=== PATIENT | male | born 1990 | race Caucasian/White ===

== ENCOUNTER 2018-01-10 03:23 | Inpatient (IN) | payer MEDICAID ==
[2018-01-10] MEDS ORDERED: ceFAZolin 2 GM/DEXTROSE 100 ML IV ONE (03:57)
--- NOTE | 2018-01-10 04:06 | EDPHY ---
H & P Stated Complaint: Nose swelling, poss infection from acne? Time Seen by Provider: 01/10/18 03:57 HPI/ROS: HPI CHIEF COMPLAINT: Picking at face, facial infection HISTORY OF PRESENT ILLNESS: Patient 27-year-old male, is otherwise healthy, denies having any significant medical history does suffer from acne, patient reports he has been extremely stressed recently is been picking at his acne on his face. Patient states that he has been picking at the lesions around his nose. He has nose for 3 days at worsen swelling and pain. Swelling rather got worse this evening. This prompted him to come the emergency room. Denies any fever. Denies headache or neck pain or stiff neck. Denies headache or severe facial pain. Past Medical History: No medical history Past Surgical History: No recent surgery Social History: Denies daily use of alcohol. Occasional marijuana use. Denies tobacco. Family History: Noncontributory ROS REVIEW OF SYSTEMS: A comprehensive 10 point review of systems is otherwise negative aside from elements mentioned in the history of present illness. Exam Constitutional triage nursing summary reviewed, vital signs reviewed, awake/ alert. Eyes normal conjunctivae and sclera, EOMI, PERRLA. HENT face: Significant swelling and cellulitis noted over the nasal bridge,, mild swelling noted to the mid forehead, additionally some swelling periorbital bilaterally with dependent edema, no significant abscess on exam. Extensive acne on face with excoriations from picking. normal inspection, atraumatic, moist mucus membranes, no epistaxis, neck supple/ no meningismus, no raccoon eyes. Respiratory clear to auscultation bilaterally, normal breath sounds, no respiratory distress, no wheezing. Cardiovascular rate normal, regular rhythm, no murmur, no edema, distal pulses normal. Gastrointestinal soft, non-tender, no rebound, no guarding, normal bowel sounds, no distension, no pulsatile mass. Genitourinary no CVA tenderness. Musculoskeletal no midline vertebral tenderness, full range of motion, no calf swelling, no tenderness of extremities, no meningismus, good pulses, neurovascularly intact. Skin pink, warm, & dry, no rash, skin atraumatic. Neurologic awake, alert and oriented x 3, AAOx3, moves all 4 extremities equally, motor intact, sensory intact, CN II-XII intact, normal cerebellar, normal vision, normal speech. Psychiatric normal mood/affect. Heme/Lymph/Immune no lymphadenopathy. Differential Diagnosis: Includes but is not limited to in a particular order facial cellulitis, facial abscess, MRSA infection, strep infection, concern for infection in the Danger zone of the face. Medical Decision Making: Plan for this patient IV establishment with basic blood work CBC and chemistry, IV Ancef [address] face with IV contrast rule out deep space infection. Re-evaluation: CT scan face with IV contrast shows inflammation around the nose and forehead with small abscesses. Concerning for cellulitis with small abscess. No osteomyelitis. No large abscess. This was called to me by Dr. Ruggiero. After review of this patient's CT scan, blood work I do recommend he gets admitted to the hospital today for IV antibiotics and close monitoring of this facial cellulitis. I have ordered 2 g of IV Ancef here. Additionally 1 L normal saline fluid. Check blood cultures and lactic. I have asked the hospitalist service Dr. Julio to admit the patient. Source: Patient - Personal History Current Tetanus Diphtheria and Acellular Pertussis (TDAP): Yes Tetanus Vaccine Date: < 10 years - Medical/Surgical History Hx Asthma: No Hx Chronic Respiratory Disease: No Hx Diabetes: No Hx Cardiac Disease: No Hx Renal Disease: No Hx Cirrhosis: No Hx Alcoholism: No Hx HIV/AIDS: No Hx Splenectomy or Spleen Trauma: No Other PMH: bronchitis - Social History Smoking Status: Light smoker Constitutional: Initial Vital Signs Temperature (C) 37.4 C 01/10/18 03:25 Heart Rate 115 H 01/10/18 03:25 Respiratory Rate 20 01/10/18 03:25 Blood Pressure 162/89 H 01/10/18 03:25 O2 Sat (%) 93 01/10/18 03:25 O2 Delivery Mode Room Air Allergies/Adverse Reactions: No Known Allergies Allergy (Verified 01/11/18 23:37) Home Medications: Medication Instructions Recorded Acetaminophen [Tylenol 325mg (*)] 650 mg PO Q4 PRN #0 tab 05/06/14 Ibuprofen [Motrin (*)] 400 mg PO Q4 PRN #0 tab 05/06/14 diphenhydrAMINE [Benadryl 25 MG 25 - 50 mg PO Q6 PRN #0 cap 05/06/14 (*)] QUEtiapine FUMARATE [Seroquel 50 50 mg PO HS PRN 01/10/18 mg (*)] Clindamycin HCl [Clindamycin] 300 mg PO TID #30 cap 01/12/18 Medical Decision Making - Data Points Laboratory Results: Laboratory Results 01/10/18 04:10 01/10/18 04:10 Medications Given: Discontinued Medications Hydrocodone Bitart/Acetaminophen ([place] 5/325) 1 - 2 tab PO Q4HRS PRN PRN Reason: Pain, Moderate Able to Take PO Stop: 01/20/18 06:47 Last Admin: 01/11/18 10:50 Dose: 2 tab Cefazolin Sodium/Dextrose (Ancef 2 Gm (Premix)) 100 mls @ 200 mls/hr IV EDNOW ONE PRN Reason: Protocol Stop: 01/10/18 04:26 Last Admin: 01/10/18 06:48 Dose: Not Given Cefazolin Sodium (Cefazolin Syringe) 2 gm in 20 mls @ 40 mls/hr IVP EDNOW ONE PRN Reason: Protocol Stop: 01/10/18 04:59 Last Admin: 01/10/18 04:26 Dose: 20 mls Sodium Chloride (Ns) 1,000 mls @ 0 mls/hr IV ONCE ONE PRN Reason: Wide Open Stop: 01/10/18 05:42 Last Admin: 01/10/18 05:56 Dose: 1,000 mls Sodium Chloride (Ns) 1,000 mls @ 125 mls/hr IV CONT NATHAN Stop: 07/09/18 06:59 Last Admin: 01/11/18 03:43 Dose: 1,000 mls Cefazolin Sodium (Cefazolin Syringe) 2 gm in 20 mls @ 40 mls/hr IVP Q8H NATHAN PRN Reason: Protocol Stop: 02/09/18 11:59 Last Admin: 01/11/18 11:30 Dose: 20 mls Ibuprofen (Motrin) 600 mg PO Q8HRS PRN PRN Reason: Pain, Mild/Fever, Can Take PO Stop: 07/09/18 06:47 Last Admin: 01/10/18 10:56 Dose: 600 mg Ketorolac Tromethamine (Toradol) 30 mg IVP Q6HRS PRN PRN Reason: Pain, Moderate Stop: 01/15/18 14:14 Last Admin: 01/10/18 18:48 Dose: 30 mg Nicotine (Nicoderm Cq) 21 mg TD DAILY NATHAN Stop: 07/09/18 08:59 Last Admin: 01/11/18 08:14 Dose: 21 mg Departure - Departure Disposition: [facility] Acute Clinical Impression: Facial cellulitis Condition: Serious
[2018-01-10 04:28] LABS: PLATELET COUNT 351 10^3/uL (150-400)
[2018-01-10] MEDS ORDERED: ceFAZolin 2 GM/SWFI 2 GM/20 ML SYR IVP ONE (04:30)
[2018-01-10] MEDS ORDERED: IOPAMIDOL (ISOVUE-300) 100 ML BTL ONE (04:40)
[2018-01-10] MEDS ORDERED: NS 1,000 ML IV ONE (05:41)
[2018-01-10] MEDS ORDERED: ACETAMINOPHEN 325 MG TAB PO PRN ×2 (06:48→10:02)
[2018-01-10] MEDS ORDERED: IBUPROFEN 200 MG TAB PO PRN ×2 (06:48→10:02)
[2018-01-10] MEDS ORDERED: NICOTINE POLACRILEX 2 MG GUM B PRN (06:48)
[2018-01-10] MEDS ORDERED: LORazepam 0.5 MG TAB PO PRN (06:48)
[2018-01-10] MEDS ORDERED: ONDANSETRON 4 MG/2 ML VIAL IVP PRN (06:48)
--- NOTE | 2018-01-10 08:16 | GHP ---
[f rep st] HISTORY AND PHYSICAL DATE OF ADMISSION: 01/10/2018 SOURCE: Patient provides history, appears reliable. EMR was reviewed and case discussed with ED pro vider. CHIEF COMPLAINT: Facial swelling. HISTORY OF PRESENT ILLNESS: This is a pleasant 27-year-old gentleman with past medical history signi ficant for acne and occasional insomnia, who presents to the emergency department today with complain ts of several days of increased facial pain and swelling. Patient with a history of acne. He had pi mples on the bridge of his nose, which he picked at and subsequently developed increasing cellulitis and swelling. The patient denies any recent fevers or chills. He denies any trouble swallowing. He denies any rhinorrhea, just significant nasal congestion and some difficulty opening his eyelids, bu t no acute changes in his vision. The patient denies any ocular pain. The patient reports some subm andibular lymphadenopathy. However, he denies any neck pain or stiffness. The patient denies any he adache. PAST MEDICAL HISTORY: Significant for acne, occasional insomnia. PAST SURGICAL HISTORY: Patient denies. FAMILY HISTORY: Mother with history of MS. SOCIAL HISTORY: Patient lives with his mother currently. He is employed. He does use occasional ma rijuana. He denies any current illicit drug use. He does have a remote history of IV drug use in [facility] for the last 2-3 months. He does smoke half-pack to 3/4 pack per day for several years. CODE STATUS: Full. PHYSICAL EXAMINATION: VITAL SIGNS: Upon arrival, blood pressure 162/89, heart rate 115, respiratory rate 20, O2 sats 93% on room air, temperature 37.4. Current vital signs: Blood pressure 128/81, he art rate is 86, respiratory rate 16, O2 saturation is 96% on room air with temperature 36.6. GENERAL : No acute distress, pleasant young adult gentleman is sitting up in bed. Does appear fatigued and acutely ill, but nontoxic. HEENT: Head: Patient with significant facial swelling and periorbital e kayla. No other rashes or sores. He does have multiple scabbed lesions on the bridge of his nose and closed comedones on his face. ENT: Mucous membranes appear moist. No oropharyngeal erythema or ex udates. NECK: Supple. Trachea is midline. Patient does have some tender submandibular lymphadenop athy bilaterally. No cervical or postauricular lymphadenopathy. CV: Regular rate and rhythm. No m urmurs, rubs, or gallops appreciated. RESPIRATORY: Lungs are clear to auscultation bilaterally. No wheezes, rales, or rhonchi. ABDOMEN: Positive bowel sounds. Soft, nontender to palpation. No jose ound, guarding or masses. : No suprapubic tenderness to palpation. No Dunn catheter in place. No CVA tenderness. EXTREMITIES: No cyanosis, clubbing, or edema. 2+ pedal pulses. NEURO: Patient with swollen eyelids, but overall no focal deficits. Cranial nerves appear intact. Some limited ran ge of motion due to edema. PSYCH: Patient's thought process content and questions are appropriate. He is cooperative and pleasant. LABORATORY STUDIES: WBC 15.7, H and H 14.3 and 43.6, MCV 90.1, platelet count is 351, neutrophil per cent 75.6. ESR is 27. Lactic acid 1.6. Sodium is 142, potassium 4.2, chloride 103, CO2 is 26, anio n gap 13, BUN is 15, creatinine 0.8, GFR greater than 60, glucose 105, calcium 9.3. CRP is 21.6. Pr ocalcitonin 0.06. CT face: Preliminary report reviewed. Final is pending. Image reviewed showing soft tissue swelling, probably early abscess anterior nose and frontal bone without any bony erosion evident. ASSESSMENT AND PLAN: A pleasant 27-year-old gentleman with history of facial acne, now with cellulit is, possible early abscess. 1. Facial cellulitis and edema, possible early abscess related to acne. The patient has been starte d on Ancef. He has no previous history of abscesses or known history of methicillin-resistant Staphy lococcus aureus. Will continue antibiotic therapy. May need to consider if no improvement, a consul tation with Ears, Nose and Throat. 2. Systemic inflammatory response syndrome criteria without severe sepsis. Lactate is normal. Anti biotics administered before any blood cultures received. Patient without any leukocytosis. He is af ebrile, and heart rate has improved. Will continue with IV fluids and monitor. 3. Pain likely related to patient's edema. Will have Toradol available and apply ice pack. 4. Fluid, electrolyte, nutrition. Intravenous fluids. The patient will have regular diet if tolera sherry. Denies any issues with swallowing at this time. Monitor electrolytes, replace if needed. 5. Prophylaxis. Sequential compression devices. Ia am holding anticoagulation pending reassessment . Low risk. Encourage ambulation. 6. Cor status: Full. 7. Disposition: Patient currently admitted to observation. If no significant improvement with curr ent antibiotic therapy, the patient may require additional hospital stay greater than 2 midnights. /[id number]/MODL
[2018-01-10] MEDS: NICOTINE 21 MG/24 HR PATCH TD SCH (08:36)
[2018-01-10] MEDS ORDERED: QUEtiapine FUMARATE 50 MG TAB PO PRN (10:02)
[2018-01-10] MEDS: NS 1,000 ML IV SCH ×2 (11:17→20:02)
[2018-01-10] MEDS: HYDROCODONE/APAP 5/325 TAB PO PRN ×3 (11:17→23:13)
[2018-01-10] MEDS: ceFAZolin 2 GM/SWFI 2 GM/20 ML SYR IVP SCH ×2 (11:28→20:01)
[2018-01-10] MEDS ORDERED: KETOROLAC 30 MG/1 ML SDV IVP PRN (14:15)
--- NOTE | 2018-01-10 14:16 | HOSPPROG ---
Hospitalist Progress Note Assessment/Plan: 27y male with facial pain. #Facial cellulitis -cont IV ancef -follow #Swelling -mild -cont supportive care -ct reviewed #Pain -ibuprofen #SIRS -resolved #Dispo likely 1-2 days consider ENT consult if not improving Subjective: very tired. pain. No other issues. Objective: Vital Signs Temp Pulse Resp BP Pulse Ox 36.3 C 84 16 113/81 H 97 01/10/18 11:10 01/10/18 11:10 01/10/18 11:10 01/10/18 11:10 01/10/18 11:10 01/09/18 01/10/18 01/11/18 05:59 05:59 05:59 Intake Total 100 Balance 100 - Physical Exam Constitutional: uncomfortable Eyes: PERRL Ears, Nose, Mouth, Throat: moist mucous membranes, hearing normal Cardiovascular: regular rate and rhythym, No JVD Respiratory: no respiratory distress, no rales or rhonchi Gastrointestinal: normoactive bowel sounds, No tenderness, No ascites Skin: warm, abrasion, erythema Musculoskeletal: normal joint ROM, no joint effusions, generalized weakness Neurologic: AAOx3 Psychiatric: interacting appropriately, not anxious, not encephalopathic ICD10 Worksheet Patient Problems: Problems Problem Status Onset SIRS (systemic inflammatory response syndrome) Acute Facial cellulitis Acute
[2018-01-11] MEDS: NS 1,000 ML IV SCH (03:43)
[2018-01-11] MEDS: ceFAZolin 2 GM/SWFI 2 GM/20 ML SYR IVP SCH ×2 (04:01→11:30)
[2018-01-11 05:08] LABS: PLATELET COUNT 324 10^3/uL (150-400)
[2018-01-11] MEDS: NICOTINE 21 MG/24 HR PATCH TD SCH (08:14)
[2018-01-11] MEDS ORDERED: IBUPROFEN 600 MG TAB PO PRN (10:48)
[2018-01-11] MEDS: HYDROCODONE/APAP 5/325 TAB PO PRN (10:50)
--- NOTE | 2018-01-11 10:56 | HOSPPROG ---
Hospitalist Progress Note Assessment/Plan: 27y male with facial pain. #Facial cellulitis -cont IV ancef -better today -still swollen with erythema #Leukocytosis -still elevated -recheck in am #Swelling -mild -cont supportive care #Pain -ibuprofen #SIRS -resolved #Dispo likely 1-2 days cont IV abx transition to PO when labs better Subjective: Feeling anxious to leave. Pain better but still present. Objective: Vital Signs Temp Pulse Resp BP Pulse Ox 36.4 C 70 16 104/61 94 01/11/18 08:00 01/11/18 08:00 01/11/18 08:00 01/11/18 08:00 01/11/18 08:00 Laboratory Results 01/11/18 04:50 01/11/18 04:50 01/10/18 01/11/18 01/12/18 05:59 05:59 05:59 Intake Total 600 Balance 600 - Physical Exam Constitutional: no apparent distress, appears nourished, not in pain Eyes: PERRL, anicteric sclera, EOMI Ears, Nose, Mouth, Throat: moist mucous membranes, hearing normal, other ( swelling abrasions) Cardiovascular: regular rate and rhythym, No JVD, No edema Respiratory: no respiratory distress, no rales or rhonchi, clear to auscultation Gastrointestinal: normoactive bowel sounds, No tenderness, No ascites Skin: warm, abrasion, erythema Musculoskeletal: full muscle strength, no muscle tenderness, normal joint ROM Neurologic: AAOx3 Psychiatric: interacting appropriately, not anxious, not encephalopathic ICD10 Worksheet Patient Problems: Problems Problem Status Onset SIRS (systemic inflammatory response syndrome) Acute Facial cellulitis Acute
[2018-01-11 15:03] VITALS: BP 120/69
--- NOTE | 2018-01-11 15:28 | PDMN ---
Medical Necessity Medical necessity: change to IP; los>2mn for facial cellulitis with leukocytosis , swelling, erythema and pain; requires continued IV abx, follow wbc, transition to oral abx; per order and progress note 01/11/18
--- NOTE | 2018-01-11 15:44 | ASMTCMCOM ---
CM Note CM Note Notes: Spoke w/RN, pt lives at home with mother and was admitted for facial cellulitis. Anticipate will be independent when medically stable. CM available for any changes. DC Plan: Independent Date Signed: 01/11/2018 03:44 PM Electronically Signed By:Cynthia Tamayo RN
--- NOTE | 2018-01-11 16:15 | GDS ---
[f rep st] DISCHARGE SUMMARY DISCHARGE DIAGNOSIS: Cellulitis. HOSPITAL COURSE: The patient was admitted to the hospital secondary to facial cellulitis. He receiv ed a CT scan of his face, noting possible abscess as well as erythema and swelling. He was treated w ith IV Ancef during his hospitalization. It was recommended that the patient remain in the hospital for further IV antibiotic therapy. He, however, is refusing to remain in the hospital and is leaving against medical advice. I have explained to him that this condition could be severe, even life-thre atening if he is not treated appropriately. He does understand this, and is willing to leave against medical advice. I have offered to provide him prescriptions for oral antibiotics and he is refusing at this time, stating he will return to the emergency room later this evening for further treatment after he has taking care of business outside the hospital. I have again instructed the patient that this is against my recommendations. He understands the severity of his condition, and refused to rem ain in the hospital setting. FOLLOWUP: Will be as the patient feels fit. DISCHARGE MEDICATIONS: None, as the patient would not wait for any prescription antibiotics to be wr itten. I have discussed this with the patient's nurse. /[id number]/MODL
== END 2018-01-11 15:42 | disposition left against medical advice (07) | DRG 383 ==
LOC: OBSVTOIN 05:39 → F3E 06:22
PROVIDERS: ADMIT Family Medicine; ATTEND Family Medicine
DX: L03.211 Cellulitis of face (principal); L70.9 Acne, unspecified; Z72.0 Tobacco use
CPT/HCPCS: 80305; G0378; J0690; J1885; Q9967

== ENCOUNTER 2018-01-11 23:34 | Inpatient (IN) | payer MEDICAID ==
--- NOTE | 2018-01-11 23:44 | EDPHY ---
H & P Stated Complaint: facial cellulitis, Time Seen by Provider: 01/11/18 23:44 HPI/ROS: HPI CHIEF COMPLAINT: Facial Cellulitis, Recent Admission, Left AMA Today. HISTORY OF PRESENT ILLNESS: Patient is a 27-year-old male, who I previously saw and admitted for facial cellulitis, he had a CT scan that showed small abscess. He was receiving IV Ancef in the hospital. He left against medical advice today. He now presents back to the emergency room at midnight, stating that he needs to be readmitted and receive IV antibiotics. 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 He states he has completed those and is ready to stay over the weekend if need be for his infection. Of note upon arrival he is afebrile. He does tell me that his facial swelling has improved, no fever, however has had some pain. Past Medical History: Denies medical history Past Surgical History: Denies surgical history Social History: Denies daily use of drugs alcohol tobacco. Family History: Noncontributory ROS REVIEW OF SYSTEMS: A comprehensive 10 point review of systems is otherwise negative aside from elements mentioned in the history of present illness. Exam Constitutional appears nontoxic, triage nursing summary reviewed, vital signs reviewed, awake/alert. Eyes normal conjunctivae and sclera, EOMI, PERRLA. HENT nasal bridge area: And forehead area: Shows cellulitis present. Facial swelling noted. No crepitus. moist mucus membranes, no epistaxis, neck supple / no meningismus, no raccoon eyes. Respiratory clear to auscultation bilaterally, normal breath sounds, no respiratory distress, no wheezing. Cardiovascular rate normal, regular rhythm, no murmur, no edema, distal pulses normal. Gastrointestinal soft, non-tender, no rebound, no guarding, normal bowel sounds, no distension, no pulsatile mass. Genitourinary no CVA tenderness. Musculoskeletal no midline vertebral tenderness, full range of motion, no calf swelling, no tenderness of extremities, no meningismus, good pulses, neurovascularly intact. Skin pink, warm, & dry, no rash, skin atraumatic. Neurologic awake, alert and oriented x 3, AAOx3, moves all 4 extremities equally, motor intact, sensory intact, CN II-XII intact, normal cerebellar, normal vision, normal speech. Psychiatric normal mood/affect. Heme/Lymph/Immune no lymphadenopathy. Differential Diagnosis: Includes but is not limited to in a particular order facial cellulitis, facial abscess, patient fashion, soft tissue swelling Medical Decision Making: Plan for this patient IV establishment with 2 g IV Ancef, check basic blood work. Most likely readmit back to the hospital service for facial cellulitis. Re-evaluation: Source: Patient - Personal History Current Tetanus/Diphtheria Vaccine: Yes Tetanus Vaccine Date: < 10 years - Medical/Surgical History Hx Asthma: No Hx Chronic Respiratory Disease: No Hx Diabetes: No Hx Cardiac Disease: No Hx Renal Disease: No Hx Cirrhosis: No Hx Alcoholism: No Hx HIV/AIDS: No Hx Splenectomy or Spleen Trauma: No Other PMH: bronchitis - Social History Smoking Status: Light smoker Constitutional: Initial Vital Signs Temperature (C) 36.9 C 01/11/18 23:36 Heart Rate 119 H 01/11/18 23:36 Respiratory Rate 18 01/11/18 23:36 Blood Pressure 162/98 H 01/11/18 23:36 O2 Sat (%) 96 01/11/18 23:36 O2 Delivery Mode Room Air Allergies/Adverse Reactions: No Known Allergies Allergy (Verified 01/11/18 23:37) Home Medications: Medication Instructions Recorded Acetaminophen [Tylenol 325mg (*)] 650 mg PO Q4 PRN #0 tab 05/06/14 Ibuprofen [Motrin (*)] 400 mg PO Q4 PRN #0 tab 05/06/14 diphenhydrAMINE [Benadryl 25 MG 25 - 50 mg PO Q6 PRN #0 cap 05/06/14 (*)] QUEtiapine FUMARATE [Seroquel 50 50 mg PO HS PRN 01/10/18 mg (*)] Clindamycin HCl [Clindamycin] 300 mg PO TID #30 cap 01/12/18 Medical Decision Making - Data Points Laboratory Results: Laboratory Results 01/12/18 00:45 01/12/18 00:15 Medications Given: Discontinued Medications Hydrocodone Bitart/Acetaminophen ([place] 5/325) 1 - 2 tab PO Q4HRS PRN PRN Reason: Pain, Moderate Able to Take PO Stop: 01/22/18 00:51 Last Admin: 01/12/18 01:43 Dose: 1 tab Clindamycin (Clindamycin) 300 mg PO ONCE@1800 ONE Stop: 01/12/18 18:01 Last Admin: 01/12/18 18:29 Dose: 300 mg Enoxaparin Sodium (Lovenox) 40 mg SC DAILY [facility] Stop: 07/11/18 08:59 Last Admin: 01/12/18 11:03 Dose: 40 mg Cefazolin Sodium/Dextrose (Ancef 2 Gm (Premix)) 100 mls @ 200 mls/hr IV EDNOW ONE PRN Reason: Protocol Stop: 01/12/18 00:26 Last Admin: 01/12/18 01:31 Dose: Not Given Cefazolin Sodium (Cefazolin Syringe) 2 gm in 20 mls @ 40 mls/hr IVP EDNOW ONE PRN Reason: Protocol Stop: 01/12/18 00:59 Last Admin: 01/12/18 00:45 Dose: 20 mls Cefazolin Sodium (Cefazolin Syringe) 2 gm in 20 mls @ 40 mls/hr IVP Q8H ONE PRN Reason: Protocol Stop: 01/12/18 09:29 Last Admin: 01/12/18 11:01 Dose: 20 mls Cefazolin Sodium (Cefazolin Syringe) 2 gm in 20 mls @ 200 mls/hr IVP ONCE ONE Stop: 01/12/18 18:05 Last Admin: 01/12/18 18:29 Dose: 20 mls Ketorolac Tromethamine (Toradol) 15 mg IVP Q6HRS PRN PRN Reason: *Pain, Inflammatory Stop: 01/17/18 05:59 Last Admin: 01/12/18 11:27 Dose: 15 mg Nicotine (Nicoderm Cq) 21 mg TD DAILY [facility] Stop: 07/11/18 02:14 Last Admin: 01/12/18 05:28 Dose: Not Given Nicotine Polacrilex (Nicorette) 2 mg B PRN PRN PRN Reason: Nicotine Withdrawal Stop: 07/11/18 02:01 Last Admin: 01/12/18 05:18 Dose: 2 mg Departure - Departure Disposition: [facility] Acute Clinical Impression: Facial cellulitis Condition: Good
[2018-01-11] MEDS ORDERED: ceFAZolin 2 GM/DEXTROSE 100 ML IV ONE (23:57)
[2018-01-12] MEDS ORDERED: ceFAZolin 2 GM/SWFI 2 GM/20 ML SYR IVP ONE ×4 (00:30→18:00)
[2018-01-12] MEDS ORDERED: ACETAMINOPHEN 325 MG TAB PO PRN ×2 (00:52→07:56)
[2018-01-12] MEDS ORDERED: ONDANSETRON 4 MG/2 ML VIAL IVP PRN (00:52)
[2018-01-12] MEDS ORDERED: HYDROCODONE/APAP 5/325 TAB PO PRN (00:52)
[2018-01-12] MEDS ORDERED: QUEtiapine FUMARATE 25 MG TAB PO PRN (00:54)
[2018-01-12 01:03] LABS: PLATELET COUNT 304 10^3/uL (150-400)
--- NOTE | 2018-01-12 01:12 | PDGENHP ---
History and Physical - Chief Complaint Facial cellulitis - History of Present Illness Source-patient provides history appears reliable. EMR reviewed and case discussed with ED provider. Patient known to me from admission earlier this morning. HPI-this is a 27-year-old gentleman with past medical history significant for acne insomnia and in a history of polysubstance abuse who presents emergency department this evening for readmission regarding facial cellulitis. Patient was admitted early yesterday morning for facial cellulitis source thought secondary to acne which patient admits he had been shaking. Patient noted increasing swelling min difficulties will open his eyes due to eyelid swelling but no acute changes in vision. He continues to report no visual changes, fevers, chills or difficulty swallowing. Patient reports that his facial edema does appear to have improved quite significantly. Patient did have to leave AMA yesterday afternoon reported for family reasons. 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 Patient reports he is prepared to stay for the weekend if necessary. Please see my original H&P from 01/11/2018. History Information - Allergies/Home Medication List Allergies/Adverse Reactions: No Known Allergies Allergy (Verified 01/11/18 23:37) Home Medications: QUEtiapine FUMARATE [Seroquel 50 mg (*)] 50 mg PO HS PRN 01/10/18 [Last Taken ] I have personally reviewed and updated: family history, medical history, social history, surgical history - Past Medical History Additional medical history: Acne, insomnia, history IV drug use and polysubstance abuse. - Surgical History Additional surgical history: Patient denies - Family History Additional family history: Mother with history MS. - Social History Smoking Status: Light smoker Tobacco Use: Cigarettes (Half pack to 3/4 pack per day.) Alcohol Use: None Drug Use: Cocaine, Marijuana, Other (Positive U tox on 01/11/2018) Review of Systems Review of Systems: ROS: 10pt was reviewed & negative except for what was stated in HPI & below Physical Exam Physical Exam: Temp Pulse Resp BP Pulse Ox 36.9 C 119 H 18 162/98 H 96 01/11/18 23:36 01/11/18 23:36 01/11/18 23:36 01/11/18 23:36 01/11/18 23:36 Constitutional: no apparent distress, not in pain Eyes: PERRL, anicteric sclera, EOMI, No scleral injection Ears, Nose, Mouth, Throat: moist mucous membranes, No poor dentition Cardiovascular: regular rate and rhythym, no murmur, rub, or gallop, pulses symmetric bilaterally, No edema Peripheral Pulses: 2+: dorsalis-pedis (R), dorsalis-pedis (L) Respiratory: no respiratory distress, no rales or rhonchi, clear to auscultation , No respiratory distress Gastrointestinal: normoactive bowel sounds, soft, non-tender abdomen, no palpable masses, No distension Genitourinary: no bladder tenderness, No flores in urethra Skin: warm, other (Patient with scabbed lesions on the bridge of his nose and face. Some open and close comedones present. Patient's facial edema is significantly improved from yesterday morning. Patient able to open his eyes without any difficulties.) Musculoskeletal: full muscle strength, No generalized weakness Neurologic: AAOx3, sensation intact bilaterally, No facial droop Psychiatric: interacting appropriately, not anxious, No agitated Lab Data & Imaging Review 01/12/18 00:45 01/12/18 00:15 WBC 11.36 10^3/uL (3.80-9.50) H 01/12/18 00:45 RBC 4.22 10^6/uL (4.40-6.38) L 01/12/18 00:45 Hgb 12.7 g/dL (13.7-17.5) L 01/12/18 00:45 Hct 38.4 % (40.0-51.0) L 01/12/18 00:45 MCV 91.0 fL (81.5-99.8) 01/12/18 00:45 MCH 30.1 pg (27.9-34.1) 01/12/18 00:45 MCHC 33.1 g/dL (32.4-36.7) 01/12/18 00:45 RDW 13.8 % (11.5-15.2) 01/12/18 00:45 Plt Count 304 10^3/uL (150-400) 01/12/18 00:45 MPV 9.0 fL (8.7-11.7) 01/12/18 00:45 Neut % (Auto) 68.8 % (39.3-74.2) 01/12/18 00:45 Lymph % (Auto) 23.3 % (15.0-45.0) 01/12/18 00:45 [place] % (Auto) 7.1 % (4.5-13.0) 01/12/18 00:45 Eos % (Auto) 0.4 % (0.6-7.6) L 01/12/18 00:45 Baso % (Auto) 0.1 % (0.3-1.7) L 01/12/18 00:45 Nucleat RBC Rel Count 0.0 % (0.0-0.2) 01/12/18 00:45 Absolute Neuts (auto) 7.82 10^3/uL (1.70-6.50) H 01/12/18 00:45 Absolute Lymphs (auto) 2.65 10^3/uL (1.00-3.00) 01/12/18 00:45 Absolute Monos (auto) 0.81 10^3/uL (0.30-0.80) H 01/12/18 00:45 Absolute Eos (auto) 0.04 10^3/uL (0.03-0.40) 01/12/18 00:45 Absolute Basos (auto) 0.01 10^3/uL (0.02-0.10) L 01/12/18 00:45 Absolute Nucleated RBC 0.00 10^3/uL (0-0.01) 01/12/18 00:45 Immature Gran % 0.3 % (0.0-1.1) 01/12/18 00:45 Immature Gran # 0.03 10^3/uL (0.00-0.10) 01/12/18 00:45 Sodium 144 mEq/L (135-145) 01/12/18 00:15 Potassium 4.1 mEq/L (3.5-5.2) 01/12/18 00:15 Chloride 107 mEq/L (97-110) 01/12/18 00:15 Carbon Dioxide 23 mEq/l (22-31) 01/12/18 00:15 Anion Gap 14 mEq/L (8-16) 01/12/18 00:15 BUN 10 mg/dL (7-23) 01/12/18 00:15 Creatinine 0.7 mg/dL (0.7-1.3) 01/12/18 00:15 Estimated GFR > 60 01/12/18 00:15 Glucose 107 mg/dL (70-100) H 01/12/18 00:15 Calcium 9.0 mg/dL (8.5-10.4) 01/12/18 00:15 Assessment & Plan Assessment: 27-year-old male with the past medical history significant for acne, insomnia, polysubstance abuse who presents emergency department for readmission after leaving AMA for facial cellulitis. #Facial cellulitis (Acute) - resume Ancef 2 g q.8h. Blood cultures from 2017 preliminary negative for growth today. #pain - patient's swelling and pain of significantly improved. Toradol, Tylenol will be available p.r.n. Will try to avoid any IV narcotics. #Insomnia - resume patient's Seroquel p.r.n. #Polysubstance abuse - cessation will be recommended. FEN - patient tolerating oral hydration will continue to encourage. Saline lock IV. Diet regular. PPX-SCDs and Lovenox. Encourage ambulation.. Cor status-full Disposition-patient admitted inpatient status for IV antibiotics therapy. Patient reports that he is planning to stay until discharge recommended by provider.
[2018-01-12] MEDS: KETOROLAC 15 MG/1 ML SDV IVP PRN ×2 (01:42→11:27)
[2018-01-12] MEDS ORDERED: NICOTINE POLACRILEX 2 MG GUM B PRN (02:02)
[2018-01-12] MEDS: NICOTINE 21 MG/24 HR PATCH TD SCH ×2 (05:21→05:28)
--- NOTE | 2018-01-12 06:32 | PDMN ---
Medical Necessity Medical necessity: C/M review: est. > 2 MN LOS for eval and TX of acute and persistent facial cellulitis, pain requiring ongoing IV Ancef, IV Toradol, oral Tylenol and [place] as needed for pain, comorbid history of 01/10/2018 to 01/11/2018 hospitalization for acute facial cellulitis and patient left Against Medical Advice 01/11/2018 reported for family reasons , insomnia history of polysubstance abuse per H/P.
[2018-01-12] MEDS ORDERED: IBUPROFEN 200 MG TAB PO PRN (07:56)
[2018-01-12] MEDS ORDERED: QUEtiapine FUMARATE 50 MG TAB PO PRN (07:56)
[2018-01-12] MEDS ORDERED: ENOXAPARIN 40 MG/0.4 ML SYR SC SCH (09:00)
--- NOTE | 2018-01-12 13:59 | GDS ---
[f rep st] DISCHARGE SUMMARY DISCHARGE DIAGNOSIS: Facial cellulitis. PHYSICAL EXAM: GENERAL: The patient is alert. VITAL SIGNS: Afebrile, 36.8. Pulse is 85, respiratory rate 16, blood pressure is 121/91. He is sat urating 98% on room air. I have seen evaluated the patient on the day of discharge. HOSPITAL COURSE: The patient is a 27-year-old male who presented to the emergency room with complain ts of facial pain. He was evaluated and diagnosed with facial cellulitis. He was treated with IV An cef during this hospitalization and has been now transitioned over to oral antibiotics at the time of disposition. He will continue clindamycin in the outpatient setting for a total of 10 days. Prescr iptions have been provided. The patient also has a history of polysubstance abuse. This has been ad dressed and recommended cessation. The patient is aware of this need. Followup will be with his [facility] physician. DISCHARGE MEDICATIONS: Please refer to EMR form. Again, I have provided the patient a prescription for clindamycin 300 mg t.i.d., #30. /[id number]/MODL
--- NOTE | 2018-01-12 15:46 | ASMTLACE ---
LACE Length of stay for Answers: Less than 1 day current admission Acuity / Level of Answers: Yes Care: Did the patient have an inpatient admission? # of Emergency department Answers: 1-2 visits in the last 6 months Social determinants Answers: History of substance abuse (ETOH, street drugs, prescription drugs, etc.) Score: 7 Date Signed: 01/12/2018 03:45 PM Electronically Signed By:REYES Barone
--- NOTE | 2018-01-12 16:49 | ASDISCHSUM ---
Discharge Information Plan Status:Home with No Needs Medically Cleared to Leave:01/12/2018 Discharge Date:01/12/2018 CM D/C Disposition:Home, Routine, Self-Care ADT D/C Disposition:Home, Routine, Self-Care Projected Discharge Date:01/12/2018 Transportation at D/C:Self Discharge Delay Reason: Follow-Up Date:01/12/2018 Discharge Slot: Final Diagnosis: Placement Information Patient Contact Information Contact Name:DAQUAN Relationship:Mother Address:[address] City:[place] Alternate Phone: [facility]/Zip Code:[place] [address] Email: Financial Information Financial Class:Medicaid Primary Plan Desc:MEDICAID HEALTH FIRST ATTIC FANS [employer]IC Primary Plan Number:[id number] Secondary Plan Desc: Secondary Plan Number: Assessment Information Case Management Discharge Plan Note Case Management Discharge Discharge Order Complete? Answers: Yes Patient to Obtain Answers: Independently Medications Discharge Comments Notes: Pt was admitted with facial cellulitis. He was here 01/10/18 in the ED and left AMA to go to work. He lives with his mother who has a MS dx and he is her caregiver. He has a hx of polysubstance abuse. He is discharging on po ABX and has no CM needs. Date Signed: 01/12/2018 04:48 PM Electronically Signed By:REYES Barone LACE LACE Length of stay for Answers: Less than 1 day current admission Acuity / Level of Answers: Yes Care: Did the patient have an inpatient admission? # of Emergency department Answers: 1-2 visits in the last 6 months Social determinants Answers: History of substance abuse (ETOH, street drugs, prescription drugs, etc.) Score: 7 Date Signed: 01/12/2018 03:45 PM Electronically Signed By:REYES Barone Intervention Information
[2018-01-12] MEDS ORDERED: CLINDAMYCIN 150 MG CAP PO ONE (18:00)
[2018-01-12 18:44] VITALS: BP 119/79
== END 2018-01-12 18:44 | disposition home or self-care (01) | DRG 383 ==
LOC: OBSVTOIN 01-12 00:52 → F1N 01-12 01:22
PROVIDERS: ADMIT Family Medicine; ATTEND Family Medicine
DX: L03.211 Cellulitis of face (principal); F12.90 Cannabis use, unspecified, uncomplicated; Z72.0 Tobacco use; G47.00 Insomnia, unspecified; L70.9 Acne, unspecified; F14.90 Cocaine use, unspecified, uncomplicated
CPT/HCPCS: J0690; J1650; J1885

== ENCOUNTER 2018-03-17 16:38 | Emergency (ER) | payer SELFPAY ==
[2018-03-17 16:56] VITALS: BP 129/81
--- NOTE | 2018-03-17 17:11 | EDPHY ---
H & P Time Seen by Provider: 03/17/18 17:01 HPI/ROS: CHIEF COMPLAINT: Weakness and numbness in the right hand HISTORY OF PRESENT ILLNESS: Patient felt fine yesterday, did fall asleep in his computer chair for couple of hours, then went directly to bed and then woke up at 9:00 a.m. Noticed that his right forearm is numb and he has weakness in the thumb and wrist extension. REVIEW OF SYSTEMS: No headache. No other weakness or numbness in any other extremity. No neck pain. No difficulty with speech or balance. PAST MEDICAL HISTORY: Acne a, insomnia Social history: History of substance abuse in the past, currently clean. Works as a cook. General Appearance: Alert and conversant, cooperative. Multiple superficial scabs and excoriations on both forearms, none of which appear fluctuant or hot to the touch or have lymphangitis. Patient had normal range of motion of elbow and shoulder. Compartments are soft. Good biceps strength and normal speech and not ataxic. Good range of motion of other extremities and face is symmetric. He does have weakness and wrist extension and thumb extension. He is numb to light touch over the dorsum of the thenar eminence on the right hand. He has normal sensation in ulnar and median nerve distribution on the right upper extremity. Is normal opposition of the thumb and index finger. He has good intrinsic muscle function. Normal right radial pulse and normal capillary refill in the fingers. Emergency Department course/MDM: More likely to be isolated radial nerve palsy, possibly because he slept in his computer chair last night for couple of hours. Volar wrist splint applied, Neurology to see in the next couple of days in the office. I think that stroke or compartment syndrome or fracture or spinal cord problem are unlikely. 1720: [place] will see 2-3 days. Smoking Status: Light smoker Constitutional: Initial Vital Signs Temperature (C) 36.6 C 03/17/18 16:51 Heart Rate 108 H 03/17/18 16:51 Respiratory Rate 18 03/17/18 16:51 Blood Pressure 129/81 H 03/17/18 16:51 O2 Sat (%) 95 03/17/18 16:51 O2 Delivery Mode Room Air Allergies/Adverse Reactions: No Known Allergies Allergy (Verified 03/17/18 16:56) MDM/Departure - MDM Procedures: Procedure: Splint placement. A right wrist Velcro splint was applied. After application of the splint I returned and re-examined the patient. The splint was adequately immobilizing the joint and distal to the splint the patient's circulation and sensation was intact. - Depart Disposition: Home, Routine, Self-Care Clinical Impression: Radial nerve palsy Qualifiers: Laterality: right Qualified Code(s): G56.31 - Lesion of radial nerve, right upper limb Condition: Good Instructions: Radial Nerve Palsy (ED) Additional Instructions: Wear splint until your recover good function of the wrist. Please call Neurology for follow-up in the office this week. Stand Alone Forms: Work Excuse Referrals: Truong Fragoso MD [Medical Doctor] - 2-3 days, call for appt.
--- NOTE | 2018-03-17 18:37 | ASMTCMCOM ---
CM Note CM Note Notes: Pt presented to the Emergency Department with right hand numbness and weakness. History includes acne, insomnia, and substance abuse (pt is currently clean). Pt lives with his mother who has MS; he works as a cook. Asked to see pt by DAI Jones regarding follow up appointment. Met with pt to discuss current situation. Pt reports that he does not have any health insurance and is concerned about seeing a Neurologist. Encouraged pt to call Mckenna with [facility]'s Medicaid assistance program on Sunday03/18/18. Also encouraged pt to follow up with his PCP at [facility] for recommendations/suggestions on how to proceed. Encouraged pt to call Dr. Fragoso's office on Sunday to discuss payment and sliding scale options. Pt also provided with JAKI's phone number for any further questions, issues or concerns. Pt verbalized understanding and agrees to follow up as discussed. Date Signed: 03/17/2018 06:37 PM Electronically Signed By:Eva Sr RN
== END 2018-03-17 17:43 | disposition home or self-care (01) ==
DX: G56.31 Lesion of radial nerve, right upper limb (principal); F17.200 Nicotine dependence, unspecified, uncomplicated
CPT/HCPCS: L3984

== ENCOUNTER 2018-10-27 18:21 | Emergency (ER) | payer MEDICAID ==
--- NOTE | 2018-10-27 19:26 | EDPHY ---
H & P Time Seen by Provider: 10/27/18 19:03 HPI/ROS: Chief complaint. Sore throat, body aches HPI. 28-year-old male presents emergency department 2 day history sore throat, swollen glands, body aches. He has had slight cough. Fatigue. Vomiting x1. No rash. No known sick contacts. History of strep of this feels somewhat different. No abdominal pain. ROS 10 systems were reviewed and negative with the exception of the elements mentioned in the history of present illness Past Medical/Surgical History: Bronchitis Social History: Single, daily smoker, no alcohol Smoking Status: Light smoker Physical Exam: General Appearance: Alert well-developed male mild distress vital signs are stable Eyes: Pupils equal and round no pallor or injection. ENT, tympanic membranes normal. Pharynx injected without exudate. Mucous membranes are moist Respiratory: No retractions. Mild inspiratory expiratory rhonchi Cardiovascular: Regular rate and rhythm. Gastrointestinal: Abdomen is soft and nontender, no masses, bowel sounds normal. Neurological: Awake and alert, sensory and motor exams grossly normal. Skin: Warm and dry, no rashes. Musculoskeletal: Neck is supple nontender. Extremities symmetrical, full range of motion. Psychiatric: Patient is oriented X 3, there is no agitation. Constitutional: Initial Vital Signs Temperature (C) 36.4 C 10/27/18 18:26 Heart Rate 101 H 10/27/18 18:26 Respiratory Rate 18 10/27/18 18:26 Blood Pressure 137/83 H 10/27/18 18:26 O2 Sat (%) 95 10/27/18 18:26 O2 Delivery Mode Room Air Allergies/Adverse Reactions: No Known Allergies Allergy (Verified 10/27/18 18:30) Home Medications: Medication Instructions Recorded METHADONE HCL 10/27/18 Penicillin V Potassium [Penicillin 500 mg PO BID #14 tab 10/27/18 VK] Medical Decision Making Procedures: Rapid strep screen and influenza swab ED Course/Re-evaluation: Flu and rapid strep were negative Patient and I discussed laboratory evaluation, treatment plan including criteria for return importance of follow-up and further evaluation. He expresses understanding and agreement Differential Diagnosis: Sore throat likely viral syndrome. No fluid no strep. - Data Points Laboratory Results: 10/27/18 10/27/18 10/27/18 Unknown 19:30 19:23 Nasal Influenza A PCR NEGATIVE FOR FLU A (NEGATIVE) Nasal Influenza B PCR NEGATIVE FOR FLU B (NEGATIVE) Group A Strep Screen NEGATIVE (NEGATIVE) Group A Strep DNA Pending Departure - Departure Disposition: Home, Routine, Self-Care Clinical Impression: Acute pharyngitis Qualifiers: Pharyngitis/tonsillitis etiology: unspecified etiology Qualified Code(s): J02.9 - Acute pharyngitis, unspecified Condition: Good Instructions: Pharyngitis (ED) Additional Instructions: Drink plenty of fluids and stay hydrated. Tylenol 1000 mg every 6 hr, ibuprofen 600 mg every 6 hr for pain and fever if not improved in 2 days or worsening symptoms begin antibiotic return for worsening symptoms. Referrals: NONE *PRIMARY CARE P,. [Primary Care Provider] - As per Instructions Stand Alone Forms: Work Excuse Prescriptions: Penicillin V Potassium [Penicillin VK] 500 mg PO BID #14 tab
[2018-10-27 20:41] VITALS: BP 128/74
== END 2018-10-27 20:42 | disposition home or self-care (01) ==
DX: J02.9 Acute pharyngitis, unspecified (principal); F17.200 Nicotine dependence, unspecified, uncomplicated